=== PATIENT | female | born 1960 | race Caucasian/White ===

== ENCOUNTER 2017-07-04 20:27 | Emergency (ER) | payer MEDICAID ==
[2017-07-04 21:01] VITALS: BP 114/74; PULSE 83; RESP 18; TEMP 97.8; O2SAT 100
[2017-07-04] MEDS ORDERED: Sodium Chloride 0.9% 1,000 ML IV STA (21:18)
--- NOTE | 2017-07-04 21:19 | ED PDOC ---
Syncope/Near Syncope/Dizziness Time Seen by Provider: 07/04/17 21:02 Chief Complaint (Nursing): Syncope Chief Complaint (Provider): dizziness History Per: Patient History/Exam Limitations: no limitations Onset/Duration Of Symptoms: Days (today) Current Symptoms Are (Timing): Better Additional Complaint(s): Pt. with dizziness all of a sudden while sitting and talking. Nash light- headed and room spinning. Did not fully pass out. After episode had nausea. Pt. states when she got here dizziness spinning is getting better. Had vomit, nonbloody x1 today. Denies any weakness, headaches, body pain. Had chest pain 1 week ago and gone now. No pain pain currently. No dyspnea. Takes thyroid meds. No calf pain, long distance travel, or hormone tx. Past Medical History Reviewed: Nursing Documentation, Vital Signs Vital Signs: Last Vital Signs Temp 97.8 F 07/04/17 20:51 Pulse 83 07/04/17 20:51 Resp 18 07/04/17 20:51 BP 114/74 07/04/17 20:51 Pulse Ox 100 07/04/17 20:51 - Medical History PMH: Hyperthyroidism Denies: Asthma, Diabetes, HTN, Pneumonia - Surgical History Surgical History: Cholecystectomy - Family History Family History: States: Unknown Family Hx - Living Arrangements Living Arrangements: With Family - Social History Current smoker - smoking cessation education provided: No Alcohol: None Drugs: Denies - Immunization History Hx Tetanus Toxoid Vaccination: No (allergic to vaccination) Hx Influenza Vaccination: No Hx Pneumococcal Vaccination: No - Home Medications Home Medications: Ambulatory Orders Medication Instructions Recorded Albuterol HFA [Ventolin HFA 90 2 puff IH [id number] #1 inhaler 04/19/15 mcg/actuation (8 g)] Azithromycin [Zithromax Z-Chuy] 1 tab PO DAILY #6 tab 04/19/15 Ibuprofen [Motrin] 1 tab PO Q8 PRN #21 tab 04/19/15 Promethazine/Codeine 5 ml PO Q12 PRN #100 ml 04/19/15 [Codeine/Promethazine 10 MG/5 Ml-6.25 MG/5 Ml] Ondansetron [Zofran] 4 mg PO Q8H PRN #10 tab 02/26/16 Ondansetron [Zofran] 4 mg PO Q8H PRN #6 tab 07/04/17 - Allergies Allergies/Adverse Reactions: Allergies Allergy/AdvReac Type Severity Reaction Status Date / Time Tetanus Vaccines and Toxoid Allergy SWELLING Verified 07/04/17 20:50 Review of Systems ROS Statement: Except As Marked, All Systems Reviewed And Found Negative Gastrointestinal: Positive for: Nausea, Vomiting Neurological: Positive for: Dizziness Physical Exam - Reviewed Nursing Documentation Reviewed: Yes Vital Signs Reviewed: Yes - Physical Exam Appears: Positive for: Non-toxic, No Acute Distress Head Exam: Positive for: ATRAUMATIC, NORMAL INSPECTION, NORMOCEPHALIC Skin: Positive for: Normal Color, Warm, DRY Eye Exam: Positive for: EOMI, Normal appearance, PERRL ENT: Positive for: Normal ENT Inspection Neck: Positive for: Normal, Painless ROM Cardiovascular/Chest: Positive for: Regular Rate, Rhythm Respiratory: Positive for: CNT, Normal Breath Sounds Gastrointestinal/Abdominal: Positive for: Normal Exam, Bowel Sounds, Soft. Negative for: Tenderness Back: Positive for: Normal Inspection. Negative for: L CVA Tenderness, R CVA Tenderness Extremity: Positive for: Normal ROM. 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 Negative for: Motor/Sensory Deficits, Aphasia - Laboratory Results Result Diagrams: 07/04/17 21:25 07/04/17 21:25 Interpretation Of Abn Labs: no acute - ECG ECG: Positive for: Interpreted By Me, Viewed By Me ECG Rhythm: Positive for: Normal QRS, Normal ST Segment, Sinus Rhythm O2 Sat by Pulse Oximetry: 100 Pulse Ox Interpretation: Normal - Radiology X-Ray: Interpreted by Me, Viewed By Mn X-Ray Interpretation: No Acute Disease - CT Scan/US ct Other Rad Studies (CT/US): Read By Radiologist Other Rad Interpretation: no acute - Progress ED Course And Treament: 2312: Stable. Slight nausea present. No more dizziness. Will give pepcid and zofran. Pt. pain free. Tolerated PO. Fu with pcp. AAOx3. Disposition - Clinical Impression Clinical Impression: Nausea, Dizziness - Patient ED Disposition Is Patient to be Admitted: No Counseled Patient/Family Regarding: Studies Performed, Diagnosis, Need For Followup, Rx Given - Disposition Referrals: David Canada MD [Medical Doctor] - 07/05/17 Disposition: Routine/Home Disposition Time: 23:13 Condition: STABLE Additional Instructions: Return if not better in 3 days. Prescriptions: Ondansetron [Zofran] 4 mg PO Q8H PRN #6 tab PRN Reason: Nausea/Vomiting Instructions: Nausea and Vomiting, Adult, Dizziness, Nonvertigo, (DC) Forms: [employer] (Micronesian) Print Language: ROMANIAN
[2017-07-04 21:42] LABS: BASO # 0.1 K/uL (0.0-0.2); BASO % 0.6 % (0.0-2.0); EOS % 0.5 % (0.0-4.0); HEMOGLOBIN 13.6 g/dL (12.0-16.0); LYMPH # 1.7 K/uL (1.0-4.3); LYMPH % 18.6 % (20.0-40.0); MEAN CELL VOLUME 88.8 fl (81.0-99.0); MEAN CORPUSCULAR HEMOGLOBIN 29.7 pg (27.0-31.0); MEAN CORPUSCULAR HGB CONC 33.5 g/dL (33.0-37.0); MEAN PLATELET VOLUME 8.1 fl (7.2-11.7); MONO % 10.8 % (0.0-10.0); NEUT # 6.2 K/uL (1.8-7.0); NEUT % 69.5 % (50.0-75.0); RBC 4.57 Mil/uL (3.80-5.20); RED CELL DISTRIBUTION WIDTH 13.4 % (11.5-14.5); WHITE BLOOD COUNT 8.9 K/uL (4.8-10.8)
[2017-07-04 21:49] LABS: ALB/GLOB RATIO 1.1 (1.0-2.1); ALBUMIN 3.9 g/dL (3.5-5.0); ALT/SGPT 26 U/L (9-52); AST/SGOT 24 U/L (14-36); BLOOD UREA NITROGEN 14 mg/dl (7-17); CALCIUM 9.6 mg/dL (8.4-10.2); GFR AFRICAN-AMERICAN > 60; GFR NON-AFRICAN AMERICAN > 60
--- NOTE | 2017-07-04 22:54 | CT ---
EXAM: CT Head Without Intravenous Contrast CLINICAL HISTORY: 56 years old, female; Pain and signs and symptoms; Dizziness; Headache; Headache not specified TECHNIQUE: Axial computed tomography images of the head/brain without intravenous contrast. All CT scans at this facility use one or more dose reduction techniques, viz.: automated exposure control; ma/kV adjustment per patient size (including targeted exams where dose is matched to indication; i.e. head); or iterative reconstruction technique. Coronal and sagittal reformatted images were created and reviewed. COMPARISON: CT - HEAD W/O CONTRAST 2016-02-26 12:03 FINDINGS: Brain: Unremarkable. No hemorrhage. No significant white matter disease. No edema. Ventricles: Unremarkable. No ventriculomegaly. Bones/joints: Unremarkable. No acute fracture. Soft tissues: Unremarkable. Sinuses: Unremarkable as visualized. No acute sinusitis. Mastoid air cells: Unremarkable as visualized. No mastoid effusion. IMPRESSION: No evidence of an acute intracranial abnormality.
--- NOTE | 2017-07-05 08:19 | RAD ---
HISTORY: dyspnea COMPARISON: Chest radiographs 04/19/2015. FINDINGS: LUNGS: No active pulmonary disease. PLEURA: No significant pleural effusion identified, no pneumothorax apparent. Stable inferior right paratracheal calcified lymph nodes or granulomata CARDIOVASCULAR: Normal. OSSEOUS STRUCTURES: No significant abnormalities. VISUALIZED UPPER ABDOMEN: Normal. OTHER FINDINGS: None. IMPRESSION: No interval acute cardiopulmonary disease appreciated.
--- NOTE | 2017-07-05 19:11 | CARD ---
APPROVED REPORT EKG Measurement Heart [id number] <Conclusion> Normal sinus rhythm Normal ECG
== END 2017-07-04 23:49 | disposition home or self-care (01) ==
LOC: H.ER 20:27
DX: R42 Dizziness and giddiness (principal); R11.0 Nausea; E05.90 Thyrotoxicosis, unspecified without thyrotoxic crisis or storm
CPT/HCPCS: 70450; 71045; 80053; 82948; 84484; 85025; 93005; 96361; 96374; 96375; 99284; J2405; J7040

== ENCOUNTER 2017-07-12 10:12 | Emergency (ER) | payer MEDICAID ==
[2017-07-12 10:24] VITALS: O2SAT 100
[2017-07-12] MEDS ORDERED: Iohexol 240 (50 ml) PO ONE (11:05)
[2017-07-12] MEDS ORDERED: Sodium Chloride 0.9% 1,000 ML IV STA (11:06)
--- NOTE | 2017-07-12 11:15 | ED PDOC ---
HPI: Abdomen Time Seen by Provider: 07/12/17 10:25 Chief Complaint (Nursing): Abdominal Pain Chief Complaint (Provider): Abdominal Pain History Per: Patient History/Exam Limitations: no limitations Onset/Duration Of Symptoms: Days (x1), Sudden Onset Current Symptoms Are (Timing): Still Present Additional Complaint(s): 56 year old female with medical history of hyperthyroidism, presents to the emergency department with a complaint of diffuse abdominal pain associated with nausea ongoing since this morning. Denied any fever, chills, vomiting, diarrhea , or urinary symptoms. Patient was discharged from ED on 07/04/17 for vomiting and dizziness with Rx for Zofran and Pepcid, which, she is currently taking. PMD: David Canada MD Past Medical History Reviewed: Historical Data, Nursing Documentation, Vital Signs Vital Signs: Last Vital Signs Temp 98.2 F 07/12/17 17:04 Pulse 78 07/12/17 17:04 Resp 16 07/12/17 17:04 BP 138/75 07/12/17 17:04 Pulse Ox 100 07/12/17 17:04 - Medical History PMH: Gastrointestinal Ulcer, Hyperthyroidism Denies: Asthma, Diabetes, HTN, Pneumonia - Surgical History Surgical History: Cholecystectomy Other surgeries: hysterectomy - Family History Family History: States: Unknown Family Hx - Social History Current smoker - smoking cessation education provided: No Alcohol: None Drugs: Denies - Immunization History Hx Tetanus Toxoid Vaccination: No (allergic to vaccination) Hx Influenza Vaccination: No Hx Pneumococcal Vaccination: No - Home Medications Home Medications: Ambulatory Orders Medication Instructions Recorded Albuterol HFA [Ventolin HFA 90 2 puff IH [id number] #1 inhaler 04/19/15 mcg/actuation (8 g)] Azithromycin [Zithromax Z-Chuy] 1 tab PO DAILY #6 tab 04/19/15 Ibuprofen [Motrin] 1 tab PO Q8 PRN #21 tab 04/19/15 Promethazine/Codeine 5 ml PO Q12 PRN #100 ml 04/19/15 [Codeine/Promethazine 10 MG/5 Ml-6.25 MG/5 Ml] Ondansetron [Zofran] 4 mg PO Q8H PRN #10 tab 02/26/16 Ondansetron [Zofran] 4 mg PO Q8H PRN #6 tab 07/04/17 Docusate Sodium [Colace] 100 mg PO BID PRN #10 capsule 07/12/17 - Allergies Allergies/Adverse Reactions: Allergies Allergy/AdvReac Type Severity Reaction Status Date / Time Tetanus Vaccines and Toxoid Allergy SWELLING Verified 07/04/17 20:50 Review of Systems ROS Statement: Except As Marked, All Systems Reviewed And Found Negative Constitutional: Negative for: Fever, Chills Gastrointestinal: Positive for: Nausea, Abdominal Pain (diffuse). Negative for : Vomiting, Diarrhea Genitourinary Female: Negative for: Dysuria, Incontinence, Hematuria Physical Exam - Reviewed Nursing Documentation Reviewed: Yes Vital Signs Reviewed: Yes - Physical Exam Appears: Positive for: Non-toxic, Uncomfortable Head Exam: Positive for: ATRAUMATIC, NORMAL INSPECTION, NORMOCEPHALIC Skin: Positive for: Normal Color Eye Exam: Positive for: Normal appearance ENT: Positive for: Normal ENT Inspection Neck: Positive for: Normal Cardiovascular/Chest: Positive for: Regular Rate, Rhythm, Chest Non Tender Respiratory: Positive for: Normal Breath Sounds. Negative for: Decreased Breath Sounds, Respiratory Distress Gastrointestinal/Abdominal: Positive for: Soft, Tenderness (diffuse). Negative for: Mass Extremity: Positive for: Normal ROM (upper/lower). Negative for: Pedal Edema ( bilateral) Neurologic/Psych: Positive for: Alert (x3), Oriented - Laboratory Results Result Diagrams: 07/12/17 11:10 07/12/17 11:10 - ECG O2 Sat by Pulse Oximetry: 100 (RA) Pulse Ox Interpretation: Normal Medical Decision Making Medical Decision Making: Initial Impression: Abdominal pain Initial Plan: * CT ABD/pelvis with PO and IV contrast * CMP * Lipase * CBC * Pepcid 20mg IVP * Morphine 4mg IV * NS 1,000ml IV per 999mls/hr * Omnipaque 240 50ml PO * Zofran 4mg IV * Urine C&S * UA Time: 1440 --CT ABD/pelvis FINDINGS: LOWER THORAX: Unremarkable. LIVER: Limited periportal edema in question, a nonspecific finding. No gross lesion or ductal dilatation. GALLBLADDER AND BILE DUCTS: Complete contraction versus surgically absent gallbladder again evident. Given prior appearance of this likely prior cholecystectomy. PANCREAS: Unremarkable. No gross lesion or ductal dilatation. SPLEEN: Unremarkable. ADRENALS: Unremarkable. No mass. KIDNEYS AND URETERS: Unremarkable. No hydronephrosis. No solid mass. VASCULATURE: Unremarkable. No aortic aneurysm. BOWEL: There is limited distention of the stomach by air and retained oral contrast material with the stomach otherwise unremarkable. Small bowel appears unremarkable and there is a mildly prominent amount retained fecal material identified throughout the entire colon suspicious for constipation. Clinically correlate further. No gross mural thickening apparent throughout the large bowel. APPENDIX: Normal appendix. PERITONEUM: Unremarkable. No free fluid. No free air. LYMPH NODES: Unremarkable. No enlarged lymph nodes. BLADDER: Unremarkable. REPRODUCTIVE: Prior hysterectomy again suggested. BONES: No acute fracture. OTHER FINDINGS: None. IMPRESSION: Limited interval periportal edema is suggested at the liver which is otherwise nonfocal. Prior cholecystectomy again evident. No prominent biliary tree dilatation identified. Prominent retained fecal material again appreciated suggestive of possible constipation. Clinically correlate. Prior hysterectomy again evident. pt aware of CT report. tolerated po. instructed to follow up outpt. pts family at bedside. Scribe Attestation: Documented by Guillermina Montoya, acting as a scribe for Tanner Rosario MD. Provider Scribe Attestation: All medical record entries made by the Scribe were at my direction and personally dictated by me. I have reviewed the chart and agree that the record accurately reflects my personal performance of the history, physical exam, medical decision making, and the department course for this patient. I have also personally directed, reviewed, and agree with the discharge instructions and disposition. Disposition - Clinical Impression Clinical Impression: Abdominal discomfort, Constipation - Patient ED Disposition Is Patient to be Admitted: No Counseled Patient/Family Regarding: Studies Performed, Diagnosis, Need For Followup - Disposition Disposition: Routine/Home Disposition Time: 12:35 Condition: IMPROVED Additional Instructions: FOLLOW UP WITH YOUR PRIMARY DOCTOR IN 1-2 DAYS RETURN TO THE ED WITH ANY WORSENING OR CONCERNING SYMPTOMS Prescriptions: Docusate Sodium [Colace] 100 mg PO BID PRN #10 capsule PRN Reason: Constipation Instructions: Constipation in Adults Forms: [facility] (Maltese)
[2017-07-12] MEDS ORDERED: Iohexol 240 (50 ml) ONE (11:24)
[2017-07-12] MEDS ORDERED: Morphine 4 MG/ML VIAL ONE (11:24)
[2017-07-12 11:25] LABS: BASO % 0.4 % (0.0-2.0); EOS % 0.2 % (0.0-4.0); HEMOGLOBIN 13.5 g/dL (12.0-16.0); LYMPH # 1.2 K/uL (1.0-4.3); LYMPH % 11.4 % (20.0-40.0); MEAN CORPUSCULAR HEMOGLOBIN 30.4 pg (27.0-31.0); MEAN CORPUSCULAR HGB CONC 34.6 g/dL (33.0-37.0); MEAN PLATELET VOLUME 8.3 fl (7.2-11.7); MONO # 0.5 K/uL (0.0-0.8); MONO % 4.8 % (0.0-10.0); NEUT # 8.9 K/uL (1.8-7.0); NEUT % 83.2 % (50.0-75.0); NRBC % 0.1 % (0.0-0.0); RBC 4.43 Mil/uL (3.80-5.20); RED CELL DISTRIBUTION WIDTH 13.4 % (11.5-14.5); WHITE BLOOD COUNT 10.7 K/uL (4.8-10.8)
[2017-07-12 11:43] LABS: ALB/GLOB RATIO 1.2 (1.0-2.1); ALBUMIN 3.9 g/dL (3.5-5.0); ALT/SGPT 27 U/L (9-52); AST/SGOT 20 U/L (14-36); BLOOD UREA NITROGEN 16 mg/dl (7-17); CALCIUM 10.1 mg/dL (8.4-10.2); GFR AFRICAN-AMERICAN > 60; GFR NON-AFRICAN AMERICAN > 60; LIPASE 117 U/L (23-300)
[2017-07-12] MEDS ORDERED: Morphine 4 MG/ML VIAL IV ONE (11:45)
[2017-07-12 11:47] LABS: URINE AMORPHOUS SEDIMENT FEW /ul (<OCC); URINE BILIRUBIN NEGATIVE (NEGATIVE); URINE BLOOD NEGATIVE (NEGATIVE); URINE CLARITY TURBID (Clear); URINE COLOR YELLOW (YELLOW); URINE GLUCOSE (UA) >=500 mg/dL (Normal); URINE LEUKOCYTE ESTERASE NEG Leu/uL (Negative); URINE PROTEIN NEGATIVE (NEGATIVE); URINE UROBILINOGEN 0.2-1.0 mg/dL (0.2-1.0)
[2017-07-12] MEDS ORDERED: Iohexol 300 100 ML IJ ONE (13:53)
[2017-07-12] MEDS ORDERED: Sodium Chloride 0.9% 100 ML ONE (13:54)
--- NOTE | 2017-07-12 14:41 | CT ---
PROCEDURE: CT Abdomen and Pelvis with contrast HISTORY: abdominal pain COMPARISON: Abdomen and pelvis CT with contrast 02/26/2016. TECHNIQUE: Following oral and intravenous contrast administration, a CT examination of the abdomen and pelvis performed from the domes of the diaphragms to the symphysis pubis with reformatted datasets provided not only axial but also sagittal and coronal series. Contrast dose: Omnipaque 300, 95 cc Radiation dose: Total exam DLP = 329.69 mGy-cm. This CT exam was performed using one or more of the following dose reduction techniques: Automated exposure control, adjustment of the mA and/or kV according to patient size, and/or use of iterative reconstruction technique. FINDINGS: LOWER THORAX: Unremarkable. LIVER: Limited periportal edema in question, a nonspecific finding. No gross lesion or ductal dilatation. GALLBLADDER AND BILE DUCTS: Complete contraction versus surgically absent gallbladder again evident. Given prior appearance of this likely prior cholecystectomy. PANCREAS: Unremarkable. No gross lesion or ductal dilatation. SPLEEN: Unremarkable. ADRENALS: Unremarkable. No mass. KIDNEYS AND URETERS: Unremarkable. No hydronephrosis. No solid mass. VASCULATURE: Unremarkable. No aortic aneurysm. BOWEL: There is limited distention of the stomach by air and retained oral contrast material with the stomach otherwise unremarkable. Small bowel appears unremarkable and there is a mildly prominent amount retained fecal material identified throughout the entire colon suspicious for constipation. Clinically correlate further. No gross mural thickening apparent throughout the large bowel. APPENDIX: Normal appendix. PERITONEUM: Unremarkable. No free fluid. No free air. LYMPH NODES: Unremarkable. No enlarged lymph nodes. BLADDER: Unremarkable. REPRODUCTIVE: Prior hysterectomy again suggested. BONES: No acute fracture. OTHER FINDINGS: None. IMPRESSION: Limited interval periportal edema is suggested at the liver which is otherwise nonfocal. Prior cholecystectomy again evident. No prominent biliary tree dilatation identified. Prominent retained fecal material again appreciated suggestive of possible constipation. Clinically correlate. Prior hysterectomy again evident.
[2017-07-12 15:02] VITALS: RESP 16
[2017-07-12] MEDS ORDERED: Alum-Mag Hydrox-Simethicone Susp (30 mL) ONE (16:01)
[2017-07-12] MEDS ORDERED: Alum-Mag Hydrox-Simethicone Susp (30 mL) PO ONE (16:19)
[2017-07-12 17:05] VITALS: BP 138/75; PULSE 78; TEMP 98.2
== END 2017-07-12 17:09 | disposition home or self-care (01) ==
LOC: H.ER 10:12
DX: K59.00 Constipation, unspecified (principal); R10.9 Unspecified abdominal pain
CPT/HCPCS: 74177; 80053; 81003; 81025; 82948; 83690; 85025; 87086; 96374; 99284; J2270; J2405; J7040; Q9966; Q9967